=== PATIENT | female | born 1955 | race Asian ===

== ENCOUNTER → 2019-11-03 13:42 | Outpatient (CLI) | payer BC, SELFPAY ==
[2019-11-04 13:46] LABS: COVID19 Sendout Not Detected (Not Detect)
== END ==
PROVIDERS: Visit Provider Physician Assistant
DX: Z11.59 Encounter for screening for other viral diseases (principal)
CPT/HCPCS: 87635

== ENCOUNTER 2019-11-06 06:02 | Inpatient (IN) | payer BC, SELFPAY ==
[2019-10-30 09:53] VITALS: BMI 25.4
[2019-11-06] VITALS (17 sets, daily range): BP systolic 132–184; BP diastolic 82–115; PULSE 18–111; RESP 12–16; TEMP 36–36.8; O2SAT 93–100; BMI 24.3
--- NOTE | 2019-11-06 | DI.RAD.S_ITS ---
PROCEDURE: XR CERVICAL SPINE 2V OR 3V INDICATIONS: C3-6 ACDF TECHNIQUE: Single AP view(s) of the cervical spine were acquired. COMPARISON: None. FINDINGS: Bones: Single intraoperative AP view of the cervical spine demonstrates presence of anterior cervical discectomy and fusion from C3 through C6 using anterior plate and screw fixation. Surgical hardware appears appropriately positioned on the AP view. Soft tissues: No fluoroscopic evidence for soft tissue abnormalities IMPRESSION: Limited intraoperative fluoroscopic AP view of the cervical spine demonstrating C3-6 anterior cervical discectomy and fusion. Dictated by: Rajiv Arias M.D. on 11/06/2019 at 11:07 Approved by: Rajiv Arias M.D. on 11/06/2019 at 11:10
[2019-11-06] MEDS: LACTATED RINGERS 1,000 ML 42 ML IV ×2 (07:06→10:05)
[2019-11-06] MEDS: ACETAMINOPHEN 325 MG TABLET 975 MG PO (07:09)
--- NOTE | 2019-11-06 07:33 | PM.PREOP ---
Pre-operative Note COVID-19 COVID-19 status: Negative Result date/Date tested (Pos, Neg/Pending): 11/04/19 Interval Note History & Physical reviewed/Exam performed by Physician: Yes Changes to H&P: No
[2019-11-06] MEDS: CEFAZOLIN 2 GM/100 ML FROZ.PIGGY IV ×2 (07:41→16:00)
--- NOTE | 2019-11-06 07:41 | SUR.PREOP ---
Dr. Valdovinos made aware of pt fasting blood sugar reading in pre-op. Per Dr. Valdovinos, he will administer insulin in the OR.
--- NOTE | 2019-11-06 08:35 | SUR.OPER ---
Supine, head on gel donut. Arms padded with gel pads, tucked at sides, towel roll under shoulders. Safety belt at thigh. Legs uncrossed.
--- NOTE | 2019-11-06 08:56 | SUR.OPER ---
FLOSEAL 5ML
[2019-11-06] MEDS: BUPIVACAINE 0.25% W/ EPI 30 ML VIAL INJ (09:23)
--- NOTE | 2019-11-06 11:10 | PM.OP.1 ---
Operative Date/Time/Diagnoses Date of procedure: 11/06/19 Time of procedure: 08:10 Pre-op diagnosis: 1. Cervical spinal stenosis C3-4, C4-5, C5-6 2. Cervical spondylosis with radiculopathy C3-4, C4-5, C5-6 Post-op diagnosis: same Procedure & Clinicians Procedure: 1. C3-4, C4-5, C5-6 anterior cervical diskectomy and fusion 2. C3-4, C4-5, C5-6 anterior interbody cage placement 3. C3-4, C4-5, C5-6 anterior instrumentation with plate and screw placement in C4-C5-C6 and C7 vertebrae 4. Utilization of microsurgical technique and operating microscope Same procedure as scheduled: Yes Indications: Patient has been having chronic neck pain and worsening cervical radiculopathy. Patient failed multiple conservative management with worsening pain weakness and numbness in her upper extremity. Patient has been having difficulty performing activity of daily living. After discussing risks benefits of treatment options, patient elected proceed with surgery. Surgeon: Letha Prasad [employer] Line Combination: Sita Santacruz Click Yes if Unassisted: No Anesthesia Type: General Operative Notes Closure Type: primary Specimen(s): none sent Prosthetic devices, grafts, tissues, transplants, or devices: Globus extend plate, PEEK cages Applied: catheter Estimated Blood Loss (mL): 10 Blood products transfused: none Procedure in detail: Patient was seen in the preoperative area. Risks and benefits of the surgery was discussed with the patient. Operative consent was obtained and placed in the chart. Patient was then taken to the operative room. Prophylactic antibiotic was given less than 0.5 hr prior to skin incision. General anesthesia was administered. Patient was placed into a supine position on her radiolucent table. Bilateral shoulders were taped down to allow proper C-arm imaging. Anterior cervical area was prepped and draped in a sterile fashion. Time-out was performed at this time. Using lateral C-arm imaging, the level between C3 and C6 was identified and marked on patient's neck. A oblique incision from midline towards medial border of sternocleidomastoid muscle was made. The platysma muscle was incised in line with skin incision. Metzenbaum scissor was used to develop the plane between the medial border of sternocleidomastoid d and the strap muscles medially. The carotid sheath and its contents were identified and protected behind the hand-held retractor during the entire case. The plane between the carotid sheath and strap muscles was developed with Metzenbaum scissors. Dissection was made down to the level of the anterior cervical fascia. Longus colli muscle was incised on the anterior aspect of vertebral bodies bilaterally from C3-C6. Spinal needle was placed into the C3-4 disc space and confirmed with lateral C-arm imaging. Using microsurgical technique and operative microscope, anterior cervical diskectomy was performed at C3-4 C4-5 and C5-6 level. This was done by removing the disc material, removing the anterior and posterior osteophytes posterior longitudinal ligaments along with performing bilateral foraminotomies at all 3 levels. Patient was found to have severe central and foraminal stenosis at all 3 levels. Patient's stenosis was fully decompressed after decompression was completed. After the diskectomy was completed, 3 anterior interbody cages were obtained. The cages were packed with DBM bone grafting material. One cage each along with the bone grafting material was then packed into the interbody spaces from C3-C6 with one cage into each interbody level. After the cages were placed, the anterior cervical plate was stabilized to the C3-C6 vertebrae using 2 screws at each each level. Total 8 screws were placed. After confirming placement of the hardware with AP and lateral C-arm imaging, the screws were locked into the plate using the locking mechanism and torque limiting screwdriver. After the hardware was placed and confirmed with AP and lateral C-arm imaging, the wound was irrigated with sterile normal saline. The platysma muscle and the subcutaneous tissue was closed with 2-0 Vicryl. The skin was closed with 4-0 Monocryl and Steri-Strips. Patient tolerated the procedure well. Patient was transferred recovery room in stable condition. There were no complications. Complications: none Post-operative Condition: stable Disposition: PACU Plan for aftercare: Admit to inpatient hospital
--- NOTE | 2019-11-06 11:26 | SUR.PHASEI ---
Pt received to PACU at 1112. Report received from circulating RN and Dr Valdovinos. Oral airway in place. No further airway assistance required. Pt noted hypertensive and Dr Valdovinos aware. Order to notify him if SBP >185. Last POC BS = 184 om OR at 1055. No further orders to recheck.
[2019-11-06] MEDS: HYDROMORPHONE 2 MG INJ IV (11:39)
--- NOTE | 2019-11-06 12:49 | PC.NURSE ---
Addendum entered by Opal Douglas R.N. 11/06/19 13:49: Patient is resting comfortably and denies pain. Was able to take a couple of sips of water without any coughing or issues. Original Note: Patient is doing well, She is A&Ox3, she denies pain at this time. Dressing to anterior neck is cdi with soft collar in place. Skin is clear, incision is covered with a gauze and tegaderm. Patient tolerating sips of water. She will be on ivf, she denies any numbness or tingling to arms and legs. Patient is diabetic and BS before going to surgery was 280, she was on an insulin drip in the OR, rechecked at 11am when out of surgery and down to 184, next blood sugar check will be at 1600. Patient is resting comfortably on her back with her head of bed up.
[2019-11-06] MEDS: SODIUM CHLORIDE 0.9% 1,000 ML 100 ML IV ×2 (13:11→23:22)
--- NOTE | 2019-11-06 13:48 | OT.IPNOTE ---
Checked on pt for OT eval. Per nursing pt still not awake yet. To see pt tomorrow for Ot eval.
--- NOTE | 2019-11-06 14:55 | PT-IP ANOTE ---
PT order received. Attempted to see pt at 1405 but nursing staff stated pt has been getting groggy and drowsy. Will reattempt tomorrow morning.
[2019-11-06] MEDS: OXYCODONE IR 5 MG TABLET PO ×2 (15:52→19:12)
[2019-11-06] MEDS: ONDANSETRON 4 MG/2 ML INJ IV ×2 (16:27→23:38)
[2019-11-06] MEDS: INSULIN ASPART 100 UNIT/ML INSULN PEN SUBCUT ×2 (16:52→21:00)
[2019-11-06] MEDS: hydrOXYzine pamoate 25 MG CAPSULE PO ×2 (16:57→20:57)
[2019-11-06] MEDS: HYDROMORPHONE 0.5 MG INJ IV (19:19)
--- NOTE | 2019-11-06 19:33 | PC.NURSE ---
Addendum entered by Anita Cline R.N. 11/06/19 23:42: provider aware regarding pt's HTN, head ache and n/v. continue to monitor per provider. Original Note: pt became nauseous and vomited 100cc, pt reports feeling better after vomiting. administered 0.5mg dilaudid for pain 09/05. pt did not eat dinner. voided using the bsc.
[2019-11-06] MEDS: SENNOSIDES 8.6 MG TABLET 17.2 MG PO (20:57)
[2019-11-06] MEDS: DOCUSATE 100 MG CAPSULE PO (20:57)
[2019-11-07] MEDS: CEFAZOLIN 2 GM/100 ML FROZ.PIGGY IV (00:26)
[2019-11-07] MEDS: OXYCODONE IR 5 MG TABLET PO ×3 (03:13→09:14)
[2019-11-07 05:00] VITALS: BP 149/85; PULSE 91; RESP 16; TEMP 37.2; O2SAT 98
--- NOTE | 2019-11-07 06:34 | PC.NURSE ---
Pt nauseated and vomiting earlier in shift. Well controlled w/Zofran. Pt encouraged to eat saltines w/oral pain meds. IV fluids continue until pt can have breakfast without becoming nauseous.
[2019-11-07] MEDS: ONDANSETRON 4 MG/2 ML INJ IV (07:05)
[2019-11-07 07:47] VITALS: BP 141/81; PULSE 80; RESP 18; TEMP 36.7; O2SAT 97
--- NOTE | 2019-11-07 08:15 | PC.NURSE ---
Day shift: Dr Prasad informed of Pt's blood tinged sputum this AM. said it is likely from surgery intubation. Pt likely to d/c home today.
--- NOTE | 2019-11-07 08:27 | PM.PN.1 ---
Exam Vital Signs (past 8 hours): - 11/07/19 05:00 11/07/19 07:47 Temperature 99.0 F 98.1 F Pulse Rate 91 H 80 Respiratory Rate 16 18 Blood Pressure 149/85 H 141/81 H Pulse Oximetry 98 97 Oxygen Delivery Method Room Air Oxygen Flow Rate 0 Assessment & Plan Assessment & Plan narrative: POD#1 s/p ACDF. Have N&V. Will continue to treat with medications. Will do PT/OT. PLan for d/c today once getting nausea better controlled. Dressing clean and dry, neuro intact on exam. Quality VTE Deep Vein Thrombosis/Pulmonary Embolism Present on Admission: No
[2019-11-07] MEDS: DOCUSATE 100 MG CAPSULE PO (09:07)
[2019-11-07] MEDS: INSULIN ASPART 100 UNIT/ML INSULN PEN SUBCUT ×2 (09:07→12:05)
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
--- NOTE | 2019-11-07 11:55 | CM.IDA ---
Initial DCP Assessment Note Pt is a 64 yo female, resident of [place] , now POD#1 from cervical fusion, ACDF w/ Dr Prasad PCP:Garrett Vanessa Payer: [facility] Out [facility] Reviewed chart, pt discussed in multidisciplinary rounds this morning. Therapy is seeing patient this morning, patient is expected to be cleared for return home w/family to assist and pt has planned for home, DC order from Ortho has already been initiated this morning. No needs expected from DC planning team although will remain available in case this changes today. JOSE ALEJANDRO Ramachandran
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
--- NOTE | 2019-11-07 13:04 | PC.NURSE ---
Day shift: Pt taken to car driven by her spouse. Taken in WC by VALDEMAR Ellsworth. Pt;s dressing CDI. Neck collar on. Paperwork signed and all questions answered. Pt has MD scripts and all personal items.
== END 2019-11-07 13:05 | disposition home or self-care (01) | DRG 472 ==
PROVIDERS: Admitting Provider Orthopaedic Surgery Orthopaedic Surgery of the Spine; PCP Family Medicine; Referring Provider Family Medicine; Visit Provider Orthopaedic Surgery Orthopaedic Surgery of the Spine
PROC: 0RG20A0 Fusion of 2 or more Cervical Vertebral Joints with Interbody Fusion Device, Anterior Approach, Anterior Column, Open Approach (ICD-10-PCS; principal; 2019-11-06 07:45)
DX: M48.02 Spinal stenosis, cervical region (principal); M47.12 Other spondylosis with myelopathy, cervical region; M47.22 Other spondylosis with radiculopathy, cervical region; R11.0 Nausea
CPT/HCPCS: 72040; 76000; 82962; 97161; 97165; 97535; C1776; J0690; J1100; J1170; J2250; J2405; J2704; J3010